=== PATIENT | female | born 1960 | race Caucasian/White ===

== ENCOUNTER → 2017-05-25 | Outpatient (CLI) | payer BC | LOC: BMCIMAGING 14:17 | PROVIDERS: ATTEND Internal Medicine | DX: S82.832A Other fracture of upper and lower end of left fibula, initial encounter for closed fracture (principal); M85.872 Other specified disorders of bone density and structure, left ankle and foot; M79.89 Other specified soft tissue disorders ==

== ENCOUNTER → 2017-05-25 | Outpatient (CLI) | payer BC | LOC: FIMAGING 17:35 | PROVIDERS: ATTEND Internal Medicine | DX: M25.572 Pain in left ankle and joints of left foot (principal); M79.89 Other specified soft tissue disorders; Z87.81 Personal history of (healed) traumatic fracture ==

== ENCOUNTER → 2017-06-09 | Outpatient (CLI) | payer BC | LOC: BMCIMAGING 15:39 | PROVIDERS: ATTEND Podiatrist Foot & Ankle Surgery | DX: S82.832K Other fracture of upper and lower end of left fibula, subsequent encounter for closed fracture with nonunion (principal) ==

== ENCOUNTER → 2017-07-28 | Outpatient (CLI) | payer BC | LOC: BMCIMAGING 13:14 | PROVIDERS: ATTEND Podiatrist Foot & Ankle Surgery | DX: S82.832D Other fracture of upper and lower end of left fibula, subsequent encounter for closed fracture with routine healing (principal) ==

== ENCOUNTER → 2017-09-01 | Outpatient (CLI) | payer BC | LOC: BMCIMAGING 16:03 | PROVIDERS: ATTEND Podiatrist Foot & Ankle Surgery | DX: S82.832G Other fracture of upper and lower end of left fibula, subsequent encounter for closed fracture with delayed healing (principal) ==